=== PATIENT | male | born 1980 | race Caucasian/White ===

== ENCOUNTER 2016-08-11 16:57 | Emergency (ER) | payer OTHER ==
--- NOTE | ~2016-08-11 | CR169 ---
[facility] A Service of [facility] & [facility] RADIOLOGY TEXT RESULTS PATIENT: ALEJANDRA LÓPEZ LOCATION: CFTX : 82 UNIT #: [id number] AGE: [address]: Kate Patterson APRN SEX: M ORDER DR: [id number] [facility] [address] [place], [place] [address] [id number] E MR#: [id number] Acc #: [id number] NAME: ALEJANDRA LÓPEZ : 1980 SEX: M STUDY DATE/TIME: 08/11/2016 16:45 UNIT: [facility] ROOM: STUDY DESCRIPTION: CR Knee 2 Views Lt Attending Physician: Kate Patterson A.P.R.N. Ordering Physician: Ed Dominick Mac M.D. Primary Care Physician: No Primary Care Physician MEDICAL IMAGING REPORT This report is preliminary unless electronic signature is present EXAM Left knee 08/11/2016 HISTORY 36-year-old male with left knee pain status post laceration with carpet blade today. COMPARISON None. FINDINGS 2 views of the left knee demonstrate soft tissue laceration in the prepatellar soft tissues. No radiopaque foreign bodies. No acute bony abnormality. Extensor mechanism appears grossly intact. No joint effusion. IMPRESSION Prepatellar soft tissue laceration. No radiopaque foreign bodies. No acute bony abnormality. Extensor mechanism appears intact. No significant joint effusion Dictated by... Tre Feliz M.D. THIS IS AN ELECTRONICALLY VERIFIED REPORT Tre Feliz M.D. at 08/12/2016 6:04 AM CINTHIA/joanne TD: 08/12/2016 04:33 JOB #: [id number] MEDICAL IMAGING REPORT COPY
== END 2016-08-11 19:10 | disposition home or self-care (01) ==
LOC: CFTX 16:57
DX: S81.012A Laceration without foreign body, left knee, initial encounter (principal); Z23 Encounter for immunization; W45.8XXA Other foreign body or object entering through skin, initial encounter; Y92.89 Other specified places as the place of occurrence of the external cause
CPT/HCPCS: 12032; 73560; 90471; 90715; 99283